=== PATIENT | male | born 1980 | race Caucasian/White ===

== ENCOUNTER 2021-05-22 10:04 | Inpatient (IN) ==
[2021-05-22 10:38] LABS: Basophils # 0.1 K/mcL (0.0-0.2); Basophils % 0.6 %; Eosinophils # 0.1 K/mcL (0.0-0.6); Eosinophils % 1.2 %; Hematocrit 43.9 % (37.5-50.1); Hemoglobin 14.8 g/dL (12.9-16.9); Immature Granulocytes % 0.2 % (0-4); Lymphocytes # 1.5 K/mcL (0.6-4.6); Lymphocytes % 18.1 %; Mean Corpuscular HGB Conc 33.7 g/dL (31.6-35.5); Mean Corpuscular Hemoglobin 28.7 pg (28.0-33.3); Mean Corpuscular Volume 85.1 fL (83.0-100.0); Mean Platelet Volume 9.4 fL (9.4-12.4); Monocytes % 11.3 %; Neutrophils # 5.8 K/mcL (1.6-8.9); Platelet Count 236 K/mcL (140-400); Red Blood Count 5.16 M/mcL (4.19-5.50); Red Cell Distribution Width 13.2 % (11.5-14.5); Segmented Neutrophils % 68.6 %; White Blood Count 8.5 K/mcL (4.3-11.1)
[2021-05-22] MEDS: 0.9 % Sodium Chloride 1,000 ML IVC SCH ×2 (10:53→11:45)
[2021-05-22 10:59] LABS: Alanine Aminotransferase 16 Units/L (7-52); Albumin 3.9 g/dL (3.5-5.7); Albumin/Globulin Ratio 1.1 (1.1-2.2); Alkaline Phosphatase 100 Units/L (34-104); Aspartate Amino Transferase 13 Units/L (13-39); BUN/Creatinine Ratio 13 (6-26); Bilirubin,Direct 0.1 mg/dL (0.0-0.2); Bilirubin,Indirect 0.6 mg/dL (0.0-1.0); Bilirubin,Total 0.7 mg/dL (0.3-1.0); Blood Urea Nitrogen 12 mg/dL (6-20); C-Reactive Protein 119 mg/L (Less than 10); Calcium 9.3 mg/dL (8.6-10.3); Carbon Dioxide 26 mEq/L (23-29); Chloride 99 mEq/L (98-107); Globulin 3.7 g/dL (2.4-3.5); Glucose 325 mg/dL (70-105); Osmolality,Calculated 286 (280-300); Potassium 4.3 mEq/L (3.5-5.1); Sodium 132 mEq/L (136-145); Total Protein 7.6 g/dL (6.4-8.9); eGFR For African Americans > 60 (> 60); eGFR For Non-African Americans > 60 (> 60)
[2021-05-22 11:03] LABS: VBG HCO3 26 mEq/L (21-27); VBG PCO2 46 mmHg (41-51); VBG PH 7.36 pH Units (7.32-7.42); VBG PO2 76 mmHg (25-50)
[2021-05-22 11:14] LABS: Uric Acid 5.1 mg/dL (2.3-7.6)
[2021-05-22] MEDS ORDERED: Vancomycin 2,000 MG/520 ML IV.SOLN IVPB ONE (11:22)
[2021-05-22] MEDS ORDERED: Cefepime HCl 1,000 MG in 0.9 % Sodium Chloride Mini Bag 100 ML IVPB ONE (11:23)
[2021-05-22] MEDS ORDERED: Cefepime HCl 1,000 MG in 0.9 % Sodium Chloride 10 ML IVP ONE (11:30)
[2021-05-22] MEDS ORDERED: Acetaminophen 325 MG TABLET PO PRN (13:02)
[2021-05-22] MEDS ORDERED: Ondansetron ODT 4 MG TAB.RAPDIS SL PRN (13:02)
[2021-05-22] MEDS ORDERED: Naloxone 0.4 MG/ML INJ IVP PRN (13:02)
[2021-05-22] MEDS ORDERED: D5% in Water 1,000 ML IVC PRN (13:09)
[2021-05-22] MEDS ORDERED: Dextrose 4 GM Chewable Tablets PO PRN ×2 (13:09)
[2021-05-22] MEDS ORDERED: *HR* Dextrose 50 % in Water (Syg) 50 ML SYRINGE IVP PRN (13:09)
[2021-05-22] MEDS ORDERED: Gadolinium Contrast Agent (WT Based) IV PRN (14:07)
[2021-05-22] MEDS ORDERED: GADOBUTROL 30 MMOL/30 ML VIAL IVP ONE (16:20)
[2021-05-22] MEDS: Piperacillin/Tazobactam 3.375 GM in 0.9 % Sodium Chloride Mini Bag 100 ML IVPB SCH ×2 (17:42→23:05)
[2021-05-22] MEDS: Insulin LISPRO 300 UNITS/3 ML VIAL SUBQ SCH ×2 (17:50→20:12)
[2021-05-22] MEDS: *HR* Heparin 5,000 UNIT/ML VIAL SQ SCH (20:44)
[2021-05-22 23:26] LABS: Bilirubin,Urine Negative (Negative); Blood,Urine Negative (Negative); Clarity,Urine Clear (Clear); Color,Urine Light-Yellow (Yellow); Glucose,Urine (UA) >=1000 mg/dL (Normal); Ketones,Urine Negative (Negative); Leukocyte Esterase,Urine Negative (Negative); Mucus,Urine Few per lpf (None-Few); Nitrite,Urine Negative (Negative); PH,Urine 5.5 pH Units (5.0-8.0); Protein,Urine Trace mg/dL (Neg-Trace); Specific Gravity,Urine > 1.030 (1.010-1.025); Squamous Epithelial Cell,Urine Few per hpf (None-Few); Urobilinogen,Urine Normal (Normal); WBC,Urine 0-3 per hpf (0-3)
[2021-05-23] MEDS: *HR* Heparin 5,000 UNIT/ML VIAL SQ SCH ×3 (05:59→20:30)
[2021-05-23 06:34] LABS: Basophils % 0.6 %; Eosinophils # 0.1 K/mcL (0.0-0.6); Eosinophils % 1.9 %; Hematocrit 38.1 % (37.5-50.1); Immature Granulocytes % 0.3 % (0-4); Lymphocytes # 2.1 K/mcL (0.6-4.6); Lymphocytes % 31.3 %; Mean Corpuscular HGB Conc 33.6 g/dL (31.6-35.5); Mean Corpuscular Hemoglobin 28.6 pg (28.0-33.3); Mean Platelet Volume 9.6 fL (9.4-12.4); Monocytes % 14.8 %; Neutrophils # 3.4 K/mcL (1.6-8.9); Platelet Count 221 K/mcL (140-400); Red Blood Count 4.48 M/mcL (4.19-5.50); Red Cell Distribution Width 13.2 % (11.5-14.5); Segmented Neutrophils % 51.1 %; White Blood Count 6.7 K/mcL (4.3-11.1)
[2021-05-23 06:43] LABS: Hemoglobin 12.8 g/dL (12.9-16.9)
[2021-05-23 06:58] LABS: BUN/Creatinine Ratio 11 (6-26); Blood Urea Nitrogen 11 mg/dL (6-20); Calcium 8.5 mg/dL (8.6-10.3); Carbon Dioxide 28 mEq/L (23-29); Chloride 102 mEq/L (98-107); Glucose 241 mg/dL (70-105); Osmolality,Calculated 287 (280-300); Potassium 4.3 mEq/L (3.5-5.1); Sodium 135 mEq/L (136-145); eGFR For African Americans > 60 (> 60); eGFR For Non-African Americans > 60 (> 60)
[2021-05-23] MEDS ORDERED: *HR* FentaNYL (PF) 100 MCG/2 ML VIAL IVP PRN (08:28)
[2021-05-23] MEDS ORDERED: Lidocaine 1% 20 ML MDV ONE (08:59)
[2021-05-23] MEDS ORDERED: Ringers Solution, Lactated 1,000 ML IVC SCH (09:00)
[2021-05-23] MEDS ORDERED: *HR* Midazolam HCl 2 MG/2 ML VIAL ONE (09:04)
[2021-05-23] MEDS ORDERED: *HR* FentaNYL (PF) 100 MCG/2 ML VIAL ONE (09:04)
[2021-05-23] MEDS ORDERED: Ondansetron 4 MG/2 ML VIAL ONE (09:04)
[2021-05-23] MEDS ORDERED: Lidocaine -MPF 2% 5 ML VIAL ONE (09:04)
[2021-05-23] MEDS ORDERED: *HR* Propofol 200 MG/20 ML VIAL IVP ONE (09:04)
[2021-05-23] MEDS ORDERED: Vancomycin (wt based) 1,000 MG VIAL IVPB SCH (10:00)
[2021-05-23] MEDS: Piperacillin/Tazobactam 3.375 GM in 0.9 % Sodium Chloride Mini Bag 100 ML IVPB SCH ×3 (10:12→23:52)
[2021-05-23] MEDS: Vancomycin 1,750 MG/517.5 ML IV.SOLN IVPB SCH ×2 (10:42→20:28)
[2021-05-23] MEDS: Insulin LISPRO 300 UNITS/3 ML VIAL SUBQ SCH ×4 (11:37→20:29)
[2021-05-23] MEDS ORDERED: Insulin DETEMIR 100 UNIT/ML X5UNITS SUBQ SCH (21:00)
[2021-05-24 04:50] LABS: Basophils % 0.2 %; Eosinophils % 0.2 %; Hemoglobin 12.7 g/dL (12.9-16.9); Immature Granulocytes % 0.2 % (0-4); Lymphocytes # 1.9 K/mcL (0.6-4.6); Lymphocytes % 19.9 %; Mean Corpuscular HGB Conc 34.3 g/dL (31.6-35.5); Mean Corpuscular Volume 84.5 fL (83.0-100.0); Mean Platelet Volume 9.8 fL (9.4-12.4); Monocytes # 0.8 K/mcL (0.0-1.3); Monocytes % 8.3 %; Neutrophils # 6.8 K/mcL (1.6-8.9); Platelet Count 250 K/mcL (140-400); Red Blood Count 4.38 M/mcL (4.19-5.50); Red Cell Distribution Width 12.9 % (11.5-14.5); Segmented Neutrophils % 71.2 %; White Blood Count 9.6 K/mcL (4.3-11.1)
[2021-05-24 05:07] LABS: BUN/Creatinine Ratio 21 (6-26); Blood Urea Nitrogen 16 mg/dL (6-20); Calcium 8.9 mg/dL (8.6-10.3); Carbon Dioxide 27 mEq/L (23-29); Chloride 104 mEq/L (98-107); Glucose 266 mg/dL (70-105); Osmolality,Calculated 296 (280-300); Potassium 4.2 mEq/L (3.5-5.1); Sodium 138 mEq/L (136-145); eGFR For African Americans > 60 (> 60); eGFR For Non-African Americans > 60 (> 60)
[2021-05-24] MEDS: *HR* Heparin 5,000 UNIT/ML VIAL SQ SCH ×3 (05:46→20:59)
[2021-05-24] MEDS: Insulin LISPRO 300 UNITS/3 ML VIAL SUBQ SCH ×4 (07:54→20:57)
[2021-05-24] MEDS: Piperacillin/Tazobactam 3.375 GM in 0.9 % Sodium Chloride Mini Bag 100 ML IVPB SCH ×2 (07:54→15:45)
[2021-05-24] MEDS: Vancomycin 1,750 MG/517.5 ML IV.SOLN IVPB SCH ×2 (07:54→20:52)
[2021-05-24] MEDS: Insulin NPH/REG 70/30 100 UNIT/ML (x5UNIT) SUBQ SCH (17:19)
[2021-05-25] MEDS: *HR* Heparin 5,000 UNIT/ML VIAL SQ SCH (05:16)
[2021-05-25 08:02] VITALS: PULSE 78; TEMP 97.1
[2021-05-25 08:03] VITALS: BP 148/93; O2SAT 97
[2021-05-25] MEDS: Piperacillin/Tazobactam 3.375 GM in 0.9 % Sodium Chloride Mini Bag 100 ML IVPB SCH ×2 (08:11)
[2021-05-25] MEDS: Insulin LISPRO 300 UNITS/3 ML VIAL SUBQ SCH ×2 (08:12→12:31)
[2021-05-25] MEDS: Insulin NPH/REG 70/30 100 UNIT/ML (x5UNIT) SUBQ SCH (08:12)
[2021-05-25] MEDS: Vancomycin 1,750 MG/517.5 ML IV.SOLN IVPB SCH (08:12)
== END 2021-05-25 13:35 | disposition home or self-care (01) | DRG 617 ==
LOC: EMEROOARM 10:04 → 4WAOSI 10:04 → SUATTDRO 14:09
PROVIDERS: ADMIT Internal Medicine; ATTEND Internal Medicine